=== PATIENT | male | born 1950 | race Caucasian/White ===

== ENCOUNTER 2020-06-04 16:51 | Emergency (ER) | payer OTHER, MEDICAID ==
[~2020-06-04] VITALS: Ht 185.4 cm; Wt 112.5 kg
[2020-06-04 17:37] VITALS: BP_SYST 118
--- NOTE | 2020-06-04 17:42 | NUR ---
Patient triaged and placed in waiting room. VSS and patient appears in no acute distress at this time. Accompanied by , awaiting available bed, and MD notified of need for MSE.
[2020-06-04 18:54] LABS: BASOPHILS # (AUTO) 0.1 K/uL (0.0-0.2); BASOPHILS % (AUTO) 0.8 % (0.0-2.0); EOSINOPHILS # (AUTO) 0.6 K/uL (0.0-0.4); EOSINOPHILS % (AUTO) 6.3 % (0.0-4.0); HEMATOCRIT 39.1 % (36-54); HEMOGLOBIN 12.6 g/dL (14.0-18.0); LYMPHOCYTES # (AUTO) 2.9 K/uL (1.0-5.5); LYMPHOCYTES % (AUTO) 31.9 % (20.5-51.5); MEAN CORPUSCULAR HEMOGLOBIN 31 pg (27-31); MEAN CORPUSCULAR HGB CONC 32 % (32-36); MEAN CORPUSCULAR VOLUME 94 fL (79.0-98.0); MONOCYTES # (AUTO) 0.7 K/uL (0.0-1.0); MONOCYTES % (AUTO) 7.2 % (1.7-9.3); NEUTROPHILS # (AUTO) 4.8 K/uL (1.8-7.7); NEUTROPHILS % (AUTO) 53.8 % (40.0-70.0); PLATELET COUNT (AUTO) 208 K/uL (130-430); RED BLOOD CELL COUNT(AUTO) 4.14 MIL/uL (4.2-6.2); RED CELL DISTRIBUTION WIDTH 15.2 % (9.0-15.0)
--- NOTE | 2020-06-04 19:01 | NUR ---
Patient to ER bed 8 to gown for evaluation. Side rails up.
[2020-06-04 19:08] LABS: CALCIUM 9.3 mg/dL (8.4-11.0); CREATININE 1.41 mg/dL (0.55-1.30); POTASSIUM 4.6 mmol/L (3.5-5.1)
--- NOTE | 2020-06-04 19:10 | NUR ---
Pt presents to the ER because PCP sent patient to the ER x today. Pt reports PCP stated he " looked anemic and needs to go to the ER to get checked out". Pt has no complaints.Denies fever, cp, n/v/d, resp distress.
--- NOTE | 2020-06-04 19:30 | NUR ---
ER at bedside examining patient.
--- NOTE | 2020-06-04 20:00 | NUR ---
# 20 gauge angiocath placed to LFA. Use of asceptic technique. Opsite placed over site. Flushed with 10 cc of normal saline. No evidence of infiltration noted. Patient tolerated well.
[2020-06-04] MEDS ORDERED: NACL 0.9% 1,000 ML IV ONE (20:15)
--- NOTE | 2020-06-04 21:30 | NUR ---
Pt requesting urinal, no other complaints or request at this time.
--- NOTE | 2020-06-04 22:04 | NUR ---
Accucheck- BG 166
[2020-06-04 22:53] VITALS: BP_SYST 118
--- NOTE | 2020-06-04 22:53 | NUR ---
Patient given written and verbal discharge instructions and verbalizes understanding. ER MD discussed with patient the results and treatment provided. Patient in stable condition. ID arm band removed. IV catheter removed intact and dressing applied, no active bleeding.
== END 2020-06-04 22:53 | disposition home or self-care (01) ==
LOC: SED 16:51
DX: E11.29 Type 2 diabetes mellitus with other diabetic kidney complication (principal); N28.9 Disorder of kidney and ureter, unspecified; D64.9 Anemia, unspecified
CPT/HCPCS: 36415; 80048; 82962; 85025; 99283; J7030

== ENCOUNTER 2020-08-22 11:05 | Inpatient (IN) | payer OTHER, MEDICAID, SELFPAY ==
[~2020-08-22] VITALS: Ht 185.4 cm; Wt 113.4 kg
[2020-08-22 11:20] VITALS: BP_SYST 124
--- NOTE | 2020-08-22 11:20 | NUR ---
Pt brought to ER for generalized weakness and SOB worsening over the last two weeks. Pt resting in [facility] comfortably at this time, no distress, MD ian fitzgerald
--- NOTE | 2020-08-22 11:20 | NUR ---
Patient to ER bed 8 to gown for evaluation. Side rails up.
--- NOTE | 2020-08-22 11:30 | NUR ---
ER at bedside examining patient.
[2020-08-22] MEDS ORDERED: DILTIAZEM HCL 25 MG/5 ML VIAL IVP ONE (12:00)
[2020-08-22 12:06] LABS: BASOPHILS # (AUTO) 0.1 K/uL (0.0-0.2); EOSINOPHILS # (AUTO) 0.2 K/uL (0.0-0.4); EOSINOPHILS % (AUTO) 1.5 % (0.0-4.0); HEMATOCRIT 37.4 % (36-54); HEMOGLOBIN 12.8 g/dL (14.0-18.0); MEAN CORPUSCULAR HEMOGLOBIN 31 pg (27-31); MEAN CORPUSCULAR HGB CONC 34 % (32-36); MEAN CORPUSCULAR VOLUME 91 fL (79.0-98.0); MONOCYTES # (AUTO) 0.8 K/uL (0.0-1.0); MONOCYTES % (AUTO) 8.5 % (1.7-9.3); NEUTROPHILS # (AUTO) 7.8 K/uL (1.8-7.7); PLATELET COUNT (AUTO) 283 K/uL (130-430); RED BLOOD CELL COUNT(AUTO) 4.12 MIL/uL (4.2-6.2); WHITE BLOOD COUNT (AUTO) 9.8 K/uL (4.8-10.8)
--- NOTE | 2020-08-22 12:10 | NUR ---
CALM, ALERT, RESP UNLABORED, SKIN WARM AND DRY. CLEAR MENTATION AND SPEECH. TO BRING MED LIST.
[2020-08-22 12:15] LABS: PROTHROMBIN TIME 10.6 SECS (9.5-12.5)
[2020-08-22 12:23] LABS: CALCIUM 9.6 mg/dL (8.4-11.0); CREATININE 1.48 mg/dL (0.55-1.30); POTASSIUM 4.2 mmol/L (3.5-5.1)
[2020-08-22 12:29] LABS: ALBUMIN 2.9 g/dL (3.4-4.8); TOTAL BILIRUBIN 1.4 mg/dL (0.0-1.0)
[2020-08-22] MEDS ORDERED: cefTRIAXone 1 GM IVPB PREMIX 50 ML IV ONE (13:00)
[2020-08-22] MEDS ORDERED: DEXAMETHASONE SOD PHOSPHATE 10 MG/ML VIAL IVP ONE (13:00)
[2020-08-22] MEDS ORDERED: AZITHROMYCIN 500 MG in NS 250 ML IV ONE (13:00)
--- NOTE | 2020-08-22 13:20 | NUR ---
CALM. ALERT, RESP UNLABORED, SAO2 97% ON 2L NC. SKIN WARM AND DRY. DENIES FEVER/CHILLS
[2020-08-22 13:47] LABS: C-REACTIVE PROTEIN QUANT 14.9 mg/dL (0-0.5)
--- NOTE | 2020-08-22 14:14 | NUR ---
ADMIT ORDERS RECEIVED
[2020-08-22] MEDS ORDERED: AZITHROMYCIN 500 MG/VIAL (ZITHROMAX) IV ONE (14:18)
[2020-08-22] MEDS ORDERED: HEPARIN SODIUM,PORCINE 2000 UNITS/0.4 ML BOLUS IVP PRN (14:30)
[2020-08-22] MEDS ORDERED: *HEPARIN PER PHARMACY XX ONE (14:30)
[2020-08-22] MEDS ORDERED: IPRATROPIUM BROM 0.5 MG/2.5 ML VIAL.NEB (ATROVENT) INH PRN (14:30)
[2020-08-22] MEDS ORDERED: HEPARIN SODIUM,PORCINE 3000 UNITS/0.6 ML BOLUS IVP PRN (14:30)
[2020-08-22] MEDS ORDERED: HEPARIN SODIUM,PORCINE 5,000 UNITS/ML VIAL IVP ONE (14:30)
[2020-08-22] MEDS ORDERED: HEPARIN 25,000 UNITS in 250 ML PREMIX IV PRN (14:30)
[2020-08-22] MEDS ORDERED: ALBUTEROL SULFATE 0.083% 2.5 MG/3 ML VIAL.NEB INH PRN (14:30)
--- NOTE | 2020-08-22 14:51 | NUR ---
CONSULTATION PAGED/CALLED Reason for Consultation: COVID-19, A-FIB Person Who was Notified: NARESH Consulting Physician: GINNY INFANTE Rolling Down Machine Operator Specialty: PULMO Ordering Physician: ANATOLIY SPOKE TO DR INFANTE IN HOSPITAL
[2020-08-22] MEDS ORDERED: DILTIAZEM HCL 30 MG TABLET PO ONE (15:00)
[2020-08-22] MEDS ORDERED: cefTRIAXone 1 GM in D5W 50 ML IV SCH (15:00)
--- NOTE | 2020-08-22 15:14 | NUR ---
DR KEITH IN TO ASSESS/PULMONOLOGY
--- NOTE | 2020-08-22 15:20 | NUR ---
Patient will be admitted to care of ANATOLIY. Admitted to TELE unit. Will go to room 122. Belongings list completed. Complete and up to date summary report printed. SBAR report to be given at bedside with opportunity for questions.
--- NOTE | 2020-08-22 15:35 | NUR ---
Admission Note Received patient from ER with diagnosis of covid pneumonia /a fib. Initial Plan of Care discussed-patient verbalized understanding. . Oriented to room, call light, pain management and safety.
[2020-08-22 15:38] VITALS: BP_SYST 110
--- NOTE | 2020-08-22 15:46 | NUR ---
CONSULTATION PAGED/CALLED Reason for Consultation: A-FIB Person Who was Notified: BRANDY Consulting Physician: KRISTINA WORTHINGTON Roller [employer] Leaf Specialty: CARDIO Ordering Physician: ANATOLIY
[2020-08-22] MEDS ORDERED: AZITHROMYCIN 500 MG in NS 250 ML IV SCH (16:00)
--- NOTE | 2020-08-22 17:25 | NUR ---
KRISTINA MAHER Dr., Demetrio visited and talked to patient via phone. Dr. Garay called the family to obtain the current medication. Offered to put the medication list into computer but Dr. Garay stated that he will put the order. Ordered noted and carried out.
--- NOTE | 2020-08-22 17:27 | NUR ---
HEPARIN DRIP STOPPED PER DR. WORTHINGTON.
[2020-08-22] MEDS: RIVAROXABAN 10 MG TABLET PO SCH (18:28)
--- NOTE | 2020-08-22 18:50 | NUR ---
CLONING NOTE Patient resting in the bed. No acute distress. On O2 2L/min via NC. Skin warm and dry to touch. SL intact to RAC, no redness, no swelling, patent. On isolation. Safety measure maintained. Call light within reached. Bed locked in low position, side rails up, bed alarm on. Will endorse to night nurse.
[2020-08-22] MEDS ORDERED: ALBUTEROL SULFATE 0.083% 2.5 MG/3 ML VIAL.NEB INH SCH (19:00)
[2020-08-22] MEDS: IPRATROPIUM BROM 0.5 MG/2.5 ML VIAL.NEB (ATROVENT) INH SCH (19:00)
[2020-08-22] MEDS: ALBUTEROL MDI INHALATION 8 GM INH INH SCH (19:00)
--- NOTE | 2020-08-22 19:19 | NUR ---
COME AND GOT BACK WALLET FROM PATIENT. PATIENT AWAKE.
[2020-08-22] MEDS: DILTIAZEM HCL 30 MG TABLET PO SCH (19:30)
[2020-08-22] MEDS ORDERED: METO50TA16 PO (19:35)
[2020-08-22] MEDS ORDERED: NEU300 PO (19:35)
[2020-08-22] MEDS ORDERED: GLU500 PO (19:35)
[2020-08-22] MEDS ORDERED: SIMV-46 PO (19:35)
[2020-08-22] MEDS ORDERED: LOSA100T3 PO (19:35)
[2020-08-22] MEDS ORDERED: FURO-149 PO (19:35)
[2020-08-22] MEDS ORDERED: METO2.5T2 PO (19:35)
[2020-08-22] MEDS ORDERED: CARV25TA55 PO (19:35)
[2020-08-22] MEDS ORDERED: FERR-69 PO (19:35)
[2020-08-22] MEDS ORDERED: RIVA20TA PO (19:35)
[2020-08-22] MEDS ORDERED: TAMS-11 PO (19:35)
[2020-08-22] MEDS ORDERED: LISI-600 PO (19:35)
[2020-08-22] MEDS ORDERED: HYDR-4274 PO (19:35)
[2020-08-22] MEDS ORDERED: POTA20TA83 PO (19:35)
--- NOTE | 2020-08-22 20:10 | NUR ---
Opening notes Pt AAOx4, VSS, afebrile. No s/s distress noted. O2 sat 97% on 2L NC. Pt ambulated to the bathroom, steady gait. Pt c/o neuropathy pain 6/10 on both legs. Pt states he takes [place] at home. Will page . IV R. AC 18G clear and patent. Dressing to R. toe C/D/I. Call light within reach. Bed low, locked, siderails up x2. Pt had phone call from family. Will continue to monitor.
[2020-08-22 20:20] VITALS: BP_SYST 120
[2020-08-22] MEDS: CARVEDILOL 25 MG TABLET (COREG) PO SCH (20:23)
--- NOTE | 2020-08-22 20:45 | NUR ---
[place] JIMENES for orders Paged and spoke w/ Dr. Eliel Mcdonald re pt's c/o pain and blood sugar checks. Orders received.
--- NOTE | 2020-08-22 21:15 | NUR ---
BS 486, paged Blood sugar checked 486, paged and spoke w/ Dr. Eliel Mcdonald. Order received to give the 12 units Regular sliding scale and [facility]
[2020-08-22] MEDS: HYDROcodone/ACETAMIN 10-325 MG TAB PO PRN (21:17)
--- NOTE | 2020-08-22 21:17 | NUR ---
Pain Pt c/o lower legs pain 04/10, pt states he takes Snook for pain at home. Medicated w/ Snook 1 tab PO as needed. Educated pt on possible side effects, pt verbalized understanding. Call light within reach. To monitor.
[2020-08-22] MEDS: INSULIN REGULAR, HUMAN 100 UNITS/ML, 10 ML VIAL (humuLIN R) SUBCUT PRN (21:18)
[2020-08-23 00:30] VITALS: BP_SYST 131
--- NOTE | 2020-08-23 00:30 | NUR ---
Rounds Pt alert, awake, watching TV, no s/s distress noted. VSS, PO cardizem administered as scheduled. Pt states he feels better. Call light within reach. Bed low, locked, siderails up x2. To monitor.
[2020-08-23] MEDS: DILTIAZEM HCL 30 MG TABLET PO SCH ×4 (00:40→18:20)
[2020-08-23] MEDS: ALBUTEROL MDI INHALATION 8 GM INH INH SCH ×4 (01:03→19:46)
--- NOTE | 2020-08-23 04:45 | NUR ---
Rounds Pt asleep, easily awakens. No s/s distress noted. IV saline lock R. AC clear and patent. Call light within reach. Bed low, locked, siderails up x2. To monitor.
--- NOTE | 2020-08-23 06:25 | NUR ---
Closing notes Pt AAOx4, VSS, no distress noted. BS checked 524, hanh JIMENES. Pt c/o 04/10 pain, medicated with [place] 10 1 tab PO as needed. IV saline lock R. AC 18G clear and patent. R. toe dressing C/D/I. Call light within reach. Bed low, locked, siderails up x2. To endorse to Am nurse.
--- NOTE | 2020-08-23 06:32 | NUR ---
SPOKE TO DR. Hunter ALBERTS REGARDING BLOOD SUGAR OF 524. NEW ORDER RECEIVED, WILL CARRY OUT.
[2020-08-23] MEDS: INSULIN REGULAR, HUMAN 100 UNITS/ML, 10 ML VIAL (humuLIN R) SUBCUT PRN ×4 (06:33→20:39)
[2020-08-23] MEDS: HYDROcodone/ACETAMIN 10-325 MG TAB PO PRN ×3 (06:35→20:33)
[2020-08-23] MEDS ORDERED: DEXTROSE 50% JECT 50 ML DISP.SYRIN IVP PRN ×2 (07:00)
[2020-08-23] MEDS ORDERED: GLUCOSE 15 GM GEL (in 37.5 GM TUBE) PO PRN (07:00)
[2020-08-23] MEDS ORDERED: D5W 1,000 ML IV PRN (07:00)
[2020-08-23] MEDS: IPRATROPIUM BROM 0.5 MG/2.5 ML VIAL.NEB (ATROVENT) INH SCH ×2 (07:00→13:00)
--- NOTE | 2020-08-23 07:48 | NUR ---
OPENING NOTE Patient resting in the bed. No acute distress. On O2 2L/min via NC. AAO x 4. Denied of pain at this time. Skin warm and dry to touch. SL intact to RAC, no redness, no swelling, patent. Discussed the safety issue, use call light when needs help, and plan of care, verbally understanding. Safety measure maintained. Call light within reached. Bed locked in low position, side rails up, bed alarm on. Will continue to monitor.
[2020-08-23 07:54] VITALS: BP_SYST 118
[2020-08-23] MEDS ORDERED: metFORMIN HCL 500 MG TABLET PO ONE (08:00)
[2020-08-23] MEDS: PIOGLITAZONE HCL 15 MG TABLET PO SCH (08:34)
[2020-08-23] MEDS: CARVEDILOL 25 MG TABLET (COREG) PO SCH ×2 (08:35→20:26)
[2020-08-23] MEDS: ASCORBIC ACID 500 MG TABLET PO SCH (08:36)
[2020-08-23] MEDS: DECADRON 4 MG TABLET PO SCH (08:36)
[2020-08-23] MEDS: FAMOTIDINE 20 MG TABLET PO SCH ×2 (08:36→20:25)
--- NOTE | 2020-08-23 08:58 | NUR ---
AM SCHEDULE MED GIVEN, TOLERATED WELL.
--- NOTE | 2020-08-23 09:01 | NUR ---
REFUSED BED ALARM Patient refused bed alarm. Risk and benefit explained, verbally understanding. Ambulated to bathroom in steady gait. Safety measure maintained. Call light within reached. Isolation maintained. Continue to monitor.
--- NOTE | 2020-08-23 09:05 | NUR ---
Nutrition Update Tristin Scale 18 noted. Pt admitted for COVID pneumonia, atr fibr. Diet: [facility] BMI: 28.4 kg/m2 RD to follow per nutrition care standards.
--- NOTE | 2020-08-23 10:22 | NUR ---
2D ECHO DONE AT BEDSIDE. EF=40-45%.
[2020-08-23 12:00] VITALS: BP_SYST 112
--- NOTE | 2020-08-23 12:02 | NUR ---
JW=[id number] Called [facility]to[facility] Kennedy exchange , left message and waited to call back.
--- NOTE | 2020-08-23 12:28 | NUR ---
IRWIN MORAN CALLED BACK Received called back from Dr. Lanza. Reported to Dr. Lanza patient's OT=194, 12 units of Humulin R insulin given as ordered. Patient's KL=030 this morning and [address] Mcdonald with order to increase Metformin 500mg to 1000mg and ordered Actos 30mg. Per patient he has insulin 70/30 [address] units [address] at home[address]. Lanza with order 70/30 insulin 35 units SQ BID. Order read back and okay to Dr. Lanza.
[2020-08-23] MEDS: cefTRIAXone 1 GM in D5W 50 ML IV SCH (13:31)
--- NOTE | 2020-08-23 13:33 | NUR ---
NORCO GIVEN Patient c/o right toe pain 04/10, [place] 10/325mg 1 tab PO given as ordered. Safety measure maintained. Call light within reached. Bed locked in low position, side rails up. Isolation maintained. Continue to monitor.
[2020-08-23] MEDS: AZITHROMYCIN 500 MG in NS 250 ML IV SCH (14:14)
--- NOTE | 2020-08-23 15:16 | NUR ---
Dietitian Recommendations * Recommend [facility] diet w/ Glucerna BID (ONS provides 440 kcal/day, 20 gm protein/day) CHRISTIAN, RD Please refer to Nutrition Assessment for details. Addendum: 08/23/20 at [address] Amended: Links added.
--- NOTE | 2020-08-23 15:23 | NUR ---
ROUND Patient resting in the bed. No acute distress. Continue on O2 2L/min via NC. Continue on isolation. Safety measure maintained. Call light within reached. Bed locked in low position, side rails up. Continue to monitor.
--- NOTE | 2020-08-23 15:32 | NUR ---
SEEN AND EXAMINED BY GINNY LO ADD REMOVED OXYGEN. PATIENT NO ACUTE DISTRESS. CONTINUE TO MONITOR.
[2020-08-23 16:00] VITALS: BP_SYST 104
--- NOTE | 2020-08-23 16:32 | NUR ---
WOUND EVALUATION: Late note for 1631 secondary to patient care. Wound Consult received from Dr. Lanza. Thank you, Dr. Lanza, for the consult. Patient received in a Allyson Bed with a mattress, awake, alert, and oriented. Patient is unable to turn independently. Tristin Score is a 19. Past Medical History: Diabetes Mellitus, Hypertension, history of Pulmonary Embolism, chronic Atrial Fibrillation, unspecified heart condition. Recent Labs: WBC 9.8, RBC 4.12, hemoglobin 12.8, hematocrit 37.4, POC glucose 512, sodium 128, chloride 90, BUN 23, creatinine 1.48, GFR 50, glucose 299, total bilirubin 1.4, lactate dehydrogenase 260, total creatine kinase 29, C-reactive protein 14.9, BNP 151, albumin 2.9, Fibrinogen 641, D-dimer 1910. Microbiology: Blood culture results x2 in progress. Intrinsic factors that delay wound healing: Diabetes Mellitus, chronic Atrial Fibrillation, Hypoalbuminemia. Extrinsic factors that delay wound healing: Decreased mobility. Wound Assessment: 1. Right Hallux, plantar aspect: Diabetic ulcer, present on admission. Site has 100% dry yellow callus, starting to peel off. No odor, no drainage. Periwound intact. Wound measures 3.0 cm x 3.0 cm. Recommend: [place] site with Betadine. Allow to air dry. Cover with foam dressing, cut to size. Wrap with Dora wrap. Perform wound care daily, and as needed for dressing soiling or dislodgement. Also recommend: Encourage and assist patient as needed with repositioning every 2 hours with pillow support and off-load pressure areas with pillows for pressure re-distribution. Offload, elevate and float bilateral heels with pillows. Perform skin care and monitor skin integrity Q shift.
[2020-08-23] MEDS: INSULIN NPH/REGULAR 70-30, 100 UNITS/ML, 10 ML VIAL SUBCUT SCH (16:40)
--- NOTE | 2020-08-23 16:43 | NUR ---
AS=317 Humulin insulin 70/30 35 units given as ordered. Humulin R 10 units given per sliding scale. Patient resting in the bed. No acute distress. O2 sat=94% room air at this time. Isolation maintained. Safety measure maintained. Call light within reached. Bed locked in low position, side rails up. Continue to monitor.
--- NOTE | 2020-08-23 17:17 | NUR ---
WOUND CARE Seen by lead sustainability specialist, recommended paste Betadine to right toe wound, cover with foam dressing. Wrap with Dora dressing and wear sock. Wound care done. Patient tolerated well. Safety measure maintained. Call light within reached. Bed locked in low position, side rails up. Isolation maintained. Continue to monitor.
[2020-08-23] MEDS: metFORMIN HCL 500 MG TABLET PO SCH (18:19)
[2020-08-23] MEDS: RIVAROXABAN 10 MG TABLET PO SCH (18:20)
--- NOTE | 2020-08-23 18:34 | NUR ---
CLOSING NOTE Patient resting in the bed. No acute distress. Breathing in room air. O2 sat=94% at this time. PRN pain med given as needed. Skin warm and dry to touch. SL intact to RAC, no redness, no swelling, patent. All needs met. Safety measure maintained. Call light within reached. Bed locked in low position, side rails up. Refused bed alarm, risk and benefit explained, verbally understanding. Isolation maintained. Will endorse to night nurse.
--- NOTE | 2020-08-23 19:30 | NUR ---
OPENING NOTES: Received report from dayshift nurse. Patient is alert and oriented x4, ambulatory on room air. He has SL RAC, dry and intact dressing. Patient is on CCHO diet with last BM today. He is a full code with RENEA.
[2020-08-23 20:00] VITALS: BP_SYST 113
--- NOTE | 2020-08-23 20:25 | NUR ---
MEDICATION ADMINISTRATION: Patient is resting in bed, alert and oriented x 4. He is c/o pain right great toe and is requesting Sayner. Patient has IV RAC, 22g patent and intact. He has urinal at bedside and ambulates to bathroom with steady gait. Patient has unlabored breathing on RA with SPO2 of 93%. Patient has dressing on right great toe, dry and intact. Next dressing change due tomorrow. Accucheck done. BG is 304. Medications administered as ordered, pt tolerated well. I educated patient about the use of Sayner and potential side effects such as drowsiness. Instructed patient to use caution when getting out of bed and advised him to use urinal as much as possible to prevent falls. He verbalized understanding and declined to have bed alarm on and states he is able to ambulate with no difficulties but will use urinal as much as possible. Ensured all safety precautions. Bed is locked and in the lowest position, call light within reach.
[2020-08-24] VITALS: BP_SYST 132
--- NOTE | 2020-08-24 00:40 | NUR ---
RN ROUNDS/MEDICATION ADMINISTRATION: Patient is laying in bed with no s/s of distress or discomfort. He has unlabored breathing on room air with SPO2 of 97%. Vital signs were within normal limits. Administered medications as ordered, pt tolerated well. Bed is in the lowest position, call light within reach. Will continue to monitor patient.
[2020-08-24] MEDS: HYDROcodone/ACETAMIN 10-325 MG TAB PO PRN ×3 (00:50→20:15)
[2020-08-24] MEDS: DILTIAZEM HCL 30 MG TABLET PO SCH ×4 (00:51→17:16)
[2020-08-24] MEDS: ALBUTEROL MDI INHALATION 8 GM INH INH SCH ×4 (00:54→19:50)
--- NOTE | 2020-08-24 03:16 | NUR ---
RN ROUNDS: Patient is laying in bed and is asleep. He is not having any s/s of distress or discomfort. Will continue to monitor patient.
--- NOTE | 2020-08-24 05:13 | NUR ---
RN ROUNDS: Patient is laying in bed and is currently asleep. He is not having any s/s of distress or discomfort. Will continue to monitor patient.
[2020-08-24] MEDS: INSULIN REGULAR, HUMAN 100 UNITS/ML, 10 ML VIAL (humuLIN R) SUBCUT PRN ×4 (06:32→20:15)
[2020-08-24] MEDS: INSULIN NPH/REGULAR 70-30, 100 UNITS/ML, 10 ML VIAL SUBCUT SCH ×2 (06:32→17:29)
--- NOTE | 2020-08-24 07:25 | NUR ---
CLOSING NOTE: Patient resting in the bed with no s/s of distress or discomfort on room air with unlabored breathing. Accucheck and insulin given this morning as ordered, tolerated well. He has saline lock 22g patent and intact to RAC. Ensured all safety precautions. Bed locked in low position, side rails up, call light within reach. All needs were met throughout shift. Isolation maintained. Will endorse to night nurse.
[2020-08-24 08:00] VITALS: BP_SYST 94
--- NOTE | 2020-08-24 08:00 | NUR ---
Initial note: Patient is alert, oriented x4 , denies any pain or discomfort. Ambulates well to the bathroom by himself.
[2020-08-24] MEDS: metFORMIN HCL 500 MG TABLET PO SCH ×2 (08:45→17:17)
[2020-08-24] MEDS: PIOGLITAZONE HCL 15 MG TABLET PO SCH (08:54)
[2020-08-24] MEDS: CARVEDILOL 25 MG TABLET (COREG) PO SCH ×2 (08:55→21:00)
[2020-08-24] MEDS: FAMOTIDINE 20 MG TABLET PO SCH ×2 (08:56→20:15)
[2020-08-24] MEDS: ASCORBIC ACID 500 MG TABLET PO SCH (08:56)
[2020-08-24] MEDS: DECADRON 4 MG TABLET PO SCH (08:56)
--- NOTE | 2020-08-24 08:56 | NUR ---
Manual medication administration due to Covid Isolation.
--- NOTE | 2020-08-24 09:00 | NUR ---
Pulmo clear: Dr. Benson, a [employer], makes round and states for he clear patient from pulmonology stand point.
--- NOTE | 2020-08-24 11:00 | NUR ---
round: Dr. Lanza makes round, inform him about pulmo clear the patient. He has new orders.
[2020-08-24 11:58] VITALS: BP_SYST 124
[2020-08-24] MEDS: IPRATROPIUM BROM 0.5 MG/2.5 ML VIAL.NEB (ATROVENT) INH SCH ×2 (13:00→19:00)
--- NOTE | 2020-08-24 14:30 | NUR ---
Cardio round: makes round for cardio, but he has no new ordered. States patient has controlled A-Fib, and he is OK if Pt will be DC home.
[2020-08-24] MEDS: cefTRIAXone 1 GM in D5W 50 ML IV SCH (14:32)
[2020-08-24] MEDS: AZITHROMYCIN 500 MG in NS 250 ML IV SCH (14:32)
[2020-08-24 15:26] VITALS: BP_SYST 98
[2020-08-24] MEDS: RIVAROXABAN 10 MG TABLET PO SCH (17:17)
--- NOTE | 2020-08-24 19:24 | NUR ---
Closing note: Patient is stable, no sign of distress, ambulates well to the bathroom. Tolerating diet well.
--- NOTE | 2020-08-24 19:30 | NUR ---
OPENING NOTES: Received report from dayshift nurse. Patient is alert and oriented x4, ambulatory on room air. He has 18 G SL RAC, dry and intact dressing. Dayshift nurse reported that patient's SBP has been in the 90's and is awaiting call back from primary MD to have parameters for Cardizem. Ensured all safety precautions. Bed is in the lowest position, locked, and call light within reach.
[2020-08-24 20:00] VITALS: BP_SYST 106
--- NOTE | 2020-08-24 20:15 | NUR ---
MEDICATION ADMINISTRATION: Patient is laying in bed, c/o pain of right great toe 6/10 and requesting [place]. All meds were administered as ordered by MD except I held Coreg due to BP 106/60. Will continue to monitor patient. Bed is in the lowest position and call light within reach. Will continue to monitor.
--- NOTE | 2020-08-24 23:00 | NUR ---
RN ROUNDS: Patient is laying in bed with no s/s of distress or discomfort. Will continue to monitor patient. Bed is in the lowest position, call light within reach.
[2020-08-25] VITALS: BP_SYST 132
[2020-08-25] MEDS: HYDROcodone/ACETAMIN 10-325 MG TAB PO PRN ×2 (00:50→08:46)
[2020-08-25] MEDS: DILTIAZEM HCL 30 MG TABLET PO SCH ×2 (00:50→06:35)
[2020-08-25] MEDS: IPRATROPIUM BROM 0.5 MG/2.5 ML VIAL.NEB (ATROVENT) INH SCH (01:00)
--- NOTE | 2020-08-25 01:00 | NUR ---
RN ROUNDS: Patient is resting in bed and has unlabored breathing on room air. Will continue to monitor patient.
[2020-08-25] MEDS: ALBUTEROL MDI INHALATION 8 GM INH INH SCH (01:23)
--- NOTE | 2020-08-25 03:00 | NUR ---
RN ROUNDS: Patient is laying in bed, currently asleep. He appears to be in stable condition. Bed is in the lowest positions and call light within reach. Will continue to monitor patient.
[2020-08-25] MEDS: INSULIN NPH/REGULAR 70-30, 100 UNITS/ML, 10 ML VIAL SUBCUT SCH (06:43)
[2020-08-25] MEDS: INSULIN REGULAR, HUMAN 100 UNITS/ML, 10 ML VIAL (humuLIN R) SUBCUT PRN (06:57)
[2020-08-25 07:17] LABS: ALBUMIN 2.5 g/dL (3.4-4.8); CREATININE 1.12 mg/dL (0.55-1.30); POTASSIUM 4.9 mmol/L (3.5-5.1); TOTAL BILIRUBIN 0.4 mg/dL (0.0-1.0)
--- NOTE | 2020-08-25 07:30 | NUR ---
OPENING NOTES: RECEIVED PATIENT FROM ATTACHER NURSE. PATIENT IS AWAKE AND ALERT x4 SITTING UP IN BED. PATIENT IS TOLERATING OXYGEN ON ROOM AIR WITH NO SIGNS OF DISTRESS OR SHORTNESS OF BREATH NOTED. IV SITE IS PATENT WITH NO SIGNS OF INFILTRATION NOTED. PATIENT STATES HE HAS PAIN BUT TOLERABLE AT THE MOMENT. INFORMED PATIENT TO LET ME KNOW WHEN IT GETS WORSE. PATIENT IN STABLE CONDITION. SAFETY, FALL, ASPIRATION, CONTACT AND DROPLET PRECAUTIONS ARE IN PLACE. BED LOCKED IN LOWEST POSITION WITH CALL LIGHT IN REACH. WILL CONTINUE TO MONITOR PATIENT FOR ANY CHANGES.
[2020-08-25 08:08] VITALS: BP_SYST 110
[2020-08-25] MEDS: CARVEDILOL 25 MG TABLET (COREG) PO SCH (08:08)
[2020-08-25] MEDS: FAMOTIDINE 20 MG TABLET PO SCH (08:08)
[2020-08-25] MEDS: metFORMIN HCL 500 MG TABLET PO SCH (08:08)
[2020-08-25] MEDS: PIOGLITAZONE HCL 15 MG TABLET PO SCH (08:08)
[2020-08-25] MEDS: ASCORBIC ACID 500 MG TABLET PO SCH (08:08)
[2020-08-25] MEDS: DECADRON 4 MG TABLET PO SCH (08:08)
--- NOTE | 2020-08-25 08:30 | NUR ---
WOUND CARE: WOUND CARE PERFORMED. PATIENT TOLERATED IT WELL.
--- NOTE | 2020-08-25 10:08 | NUR ---
RN ROUNDS/MD ROUNDS: PATIENT IS AWAKE AND ALERT x4 LAYING DOWN IN BED. PATIENT IS TOLERATING OXYGEN ON ROOM AIR WITH NO SIGNS OF DISTRESS OR SHORTNESS OF BREATH NOTED. IV SITE IS PATENT WITH NO SIGNS OF INFILTRATION NOTED. DR. COPE MAKING HIS ROUNDS. SPOKE WITH PATIENT OVER THE PHONE. PATIENT IN STABLE CONDITION. WILL CONTINUE TO MONITOR PATIENT FOR ANY CHANGES.
[2020-08-25 10:13] VITALS: BP_SYST 110
[2020-08-25] MEDS ORDERED: DEC4 PO (10:17)
--- NOTE | 2020-08-25 11:30 | NUR ---
D/C Patient: Patient given medication reconciliation form and D/C instructions. Exit Care provided. Patient verbalized understanding. MD discussed with patient the results and treatment provided. Ambulatory with steady gait for discharge to home. Patient in stable condition, ID band removed. IV catheter removed, intact and dressing applied, no active bleeding. Rx of Dexamethasone sent to preferred pharmacy. Patient educated on pain management. All belongings sent with patient.
[2020-08-25] MEDS ORDERED: COR25 PO (13:33)
--- NOTE | 2020-08-28 14:22 | NUR ---
Discharge Follow Up Phone Call Phoned patient, , and spoke with patient's , Torie. Torie stated that patient has been doing fine. He is improving every day. They filled his prescriptions and he is taking his medications as directed. He is following the quarantine guidelines. he has a follow up appointment scheduled with his PCP. No questions or concerns.
== END 2020-08-25 11:30 | disposition home or self-care (01) | DRG 177 ==
LOC: SED 11:05 → STU 14:17
PROVIDERS: ADMIT Internal Medicine Hospice and Palliative Medicine; ATTEND Internal Medicine Hospice and Palliative Medicine
DX: U07.1 COVID-19 (principal); J12.9 Viral pneumonia, unspecified; J96.01 Acute respiratory failure with hypoxia; I50.23 Acute on chronic systolic (congestive) heart failure; I48.20 Chronic atrial fibrillation, unspecified; E11.621 Type 2 diabetes mellitus with foot ulcer; L97.509 Non-pressure chronic ulcer of other part of unspecified foot with unspecified severity; E11.40 Type 2 diabetes mellitus with diabetic neuropathy, unspecified; N40.0 Benign prostatic hyperplasia without lower urinary tract symptoms; F17.210 Nicotine dependence, cigarettes, uncomplicated; E11.65 Type 2 diabetes mellitus with hyperglycemia; I11.0 Hypertensive heart disease with heart failure; I44.7 Left bundle-branch block, unspecified; E78.5 Hyperlipidemia, unspecified; Z86.711 Personal history of pulmonary embolism; Z79.01 Long term (current) use of anticoagulants; Z79.899 Other long term (current) drug therapy
CPT/HCPCS: 36415; 36600; 71045; 80053; 82550-TC; 82728; 82803-TC; 82962; 83605; 83615-TC; 83880; 84484; 85025; 85379; 85384-TC; 85610-TC; 85730-TC; 86140; 86886; 86900; 86901; 87040-TC; 93005; 93306; 94640; 94760; 96365; 96367; 99291; G0378; J0456; J0696; J1100; J1644; J1815; J3490; J7050; J7060; J8540

== ENCOUNTER 2021-06-03 14:03 | Emergency (ER) | payer OTHER, MEDICAID ==
[~2021-06-03] VITALS: Ht 185.4 cm; Wt 113.9 kg
[~2021-06-03 14:03] MED LIST: COR25 PO; DEC4 PO; FERR-69 PO; FURO-149 PO; GLU500 PO; HYDR-4274 PO; LISI20TA30 PO; METO2.5T2 PO; NEU300 PO; POTA20TA83 PO; RIVA20TA PO; SIMV-46 PO; TAMS-11 PO
[2021-06-03 14:55] VITALS: BP_SYST 115
[2021-06-03] MEDS ORDERED: HYDROcodone/ACETAMIN 10-325 MG TAB PO ONE (16:15)
[2021-06-03 19:49] VITALS: BP_SYST 138
== END 2021-06-03 19:49 | disposition home or self-care (01) ==
LOC: SED 14:03
DX: E11.621 Type 2 diabetes mellitus with foot ulcer (principal); L97.519 Non-pressure chronic ulcer of other part of right foot with unspecified severity; I10 Essential (primary) hypertension; Z79.899 Other long term (current) drug therapy; Z79.84 Long term (current) use of oral hypoglycemic drugs
CPT/HCPCS: 99283